=== PATIENT | female | born 1990 | race African-American/Black ===

== ENCOUNTER 2022-02-27 16:57 | Emergency (ER) | payer OTHER ==
[~2022-02-27] VITALS: Ht 172.7 cm; Wt 61.2 kg
[2022-02-27] MEDS ORDERED: IV NS 0.9% 1,000 ML BAG IV ONE (18:00)
--- NOTE | 2022-02-27 18:10 | NUR ---
BIBS C/O LUMP ON HEAD X5DAYS, DENIES TRAUMA. AMBULATORY, PLACED ON BED, AAOX4, IN PAIN 5/10 PS BEARABLE.
--- NOTE | 2022-02-27 18:24 | NUR ---
URINE SAMPLE SENT TO LAB
--- NOTE | 2022-02-27 18:54 | NUR ---
CALLED LAB FOR UA
--- NOTE | 2022-02-27 19:19 | NUR ---
CALLED LAB FOR UA
[2022-02-27 19:25] LABS: CALCIUM, SERUM 8.6 mg/dL (8.5-10.1); CREATININE 0.8 mg/dL (0.6-1.3); POTASSIUM 3.4 mmol/L (3.5-5.1)
[2022-02-27] MEDS ORDERED: IOHEXOL-350 100 ML VIAL IV ONE (19:37)
--- NOTE | 2022-02-27 19:39 | NUR ---
PATIENT TAKEN TO CT VIA MIL
[2022-02-27 19:47] LABS: BASOPHILS % (AUTO) 0.6 % (0.0-2.0); EOSINOPHILS % (AUTO) 4.6 % (0.0-6.0); HEMATOCRIT 44 % (33-45); HEMOGLOBIN 14.3 g/dL (11.5-14.8); LYMPHOCYTES # (AUTO) 1.8 K/uL (0.8-4.8); LYMPHOCYTES % (AUTO) 23.8 % (20.0-44.0); MEAN CORPUSCULAR HGB CONC 33 g/dl (31.0-36.0); MEAN CORPUSCULAR VOLUME 87 fL (82-100); MONOCYTES # (AUTO) 0.7 K/uL (0.1-1.30); MONOCYTES % (AUTO) 8.8 % (2.0-12.0); NEUTROPHILS # (AUTO) 4.7 K/uL (1.8-8.9); NEUTROPHILS % (AUTO) 62.2 % (43.0-81.0); PLATELET COUNT (AUTO) 231 K/uL (150-450); RED BLOOD CELL COUNT(AUTO) 5.04 MIL/uL (4.0-5.2); WHITE BLOOD COUNT (AUTO) 7.6 K/uL (4.3-11.0)
--- NOTE | 2022-02-27 21:41 | NUR ---
IV removed. Catheter intact and site benign. Pressure and 4x4 applied to site. No bleeding noted.Patient discharged to home in stable condition. Written and verbal after care instructions given. Patient verbalizes understanding of instruction.
[2022-02-27 21:43] VITALS: BP 110/80
== END 2022-02-27 21:41 | disposition home or self-care (01) ==
LOC: ER 17:13
DX: E87.1 Hypo-osmolality and hyponatremia (principal); R51.9 Headache, unspecified; E16.2 Hypoglycemia, unspecified; E87.6 Hypokalemia; R42 Dizziness and giddiness; D23.39 Other benign neoplasm of skin of other parts of face
CPT/HCPCS: 99285; 70498; 70496; 85025; 80048; 84703; 36415; 85730; Q9967